=== PATIENT | female | born 1990 | race Caucasian/White ===

== ENCOUNTER 2020-04-09 23:58 | Emergency (ER) | payer OTHER ==
[~2020-04-09] VITALS: Ht 172.7 cm; Wt 90.7 kg
[2020-04-10] MEDS ORDERED: AUGMENTIN 875-1 EACH PO (00:11)
[2020-04-10] MEDS ORDERED: AMOX TR-K600 MG/5 M PO (00:44)
[2020-04-10] MEDS ORDERED: HYDROCODONE-ACE15 ML PO (00:44)
[2020-04-10] MEDS ORDERED: magic mouthwash SWISH&SPIT (00:44)
[2020-04-10 01:01] VITALS: BP 127/61
== END 2020-04-10 01:01 | disposition home or self-care (01) ==
LOC: M.ERS 23:58
DX: J03.90 Acute tonsillitis, unspecified (principal); H66.91 Otitis media, unspecified, right ear; J45.909 Unspecified asthma, uncomplicated